=== PATIENT | male | born 1970 | race Caucasian/White ===

== ENCOUNTER 2017-01-26 15:09 | Inpatient (IN) | payer BC ==
--- NOTE | ~2017-01-26 | OR ---
Unit #: [id number] #: [id number] Patient: JUNIOR HERZOG [id number] [address] [place], [place] [address] [id number] MR#: [id number] NAME: JUNIOR HERZOG ROOM: 461 Date of Procedure: 01/27/2017 Admission Date: 01/26/2017 Surgeon: Alejandra Lujan M.D. : 1970 Attending Physician: Alejandra Lujan M.D. Primary Care Physician: Generic Doctor Not In System OPERATIVE REPORT PREOPERATIVE DIAGNOSIS Left lateral ankle wound infection. 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 PROCEDURE PERFORMED Left lateral ankle wound debridement, irrigation (16824) TECHNOLOGY SPECIALIST Prerna. ANESTHESIA General. INDICATIONS FOR SURGERY This 46-year-old male with almost one year status post left tibial talocalcaneal fusion. He had done relatively well and was fully ambulatory until a week ago when he fell injuring his left ankle. He developed a pointing abscess on the lateral wound, which abruptly drained 2 days ago, draining pus. The patient states that he had a fever and chills. He was admitted with a fever and an elevated white count. X-rays were fairly unremarkable. He has a 5 mm diameter wound, which extends down to the lateral talus. He is admitted for formal operative debridement. His radiographs show complete fusion of the subtalar joint, but no evidence of fusion of the ankle joint. DESCRIPTION OF PROCEDURE The patient was taken to the operating room and placed in supine position and general anesthetic was induced. The left leg was identified as the correct operative extremity during the time-out procedure. The IV antibiotic protocol was not followed because he was on preoperative vancomycin and Zosyn. The left leg was prepped and draped in usual sterile fashion. The leg was exsanguinated with gravity and the tourniquet inflated to 250 mmHg. The wound was then sharply debrided using a rongeur and scalpel. There was pus coming from the tibiotalar joint and there was clearly a nonunion of the tibiotalar fusion site. After removal of all appearing and infected appearing tissue, the wound was irrigated with 3 L of normal saline pulse irrigant. The hardware could not be removed because we did not have the appropriate hardware to remove the intramedullary nail. The wound was packed open with Betadine-soaked Kerlix and a combination of 4x4s, cast padding, and Unit #: [id number] #: [id number] Patient: JUNIOR HERZOG Jone wraps were applied. The patient was then awakened in the operating room and transported to the recovery room in stable condition. ESTIMATED BLOOD LOSS 100 mL. COMPLICATIONS None. SPECIMENS Cultures. TOURNIQUET TIME 15 minutes. PLAN The patient will return to the operating room in 4 days for complete removal of all hardware, formal debridement of the tibiotalar joint, and placement of antibiotic beads. He will continue IV antibiotics in the interim. Dictated by.Elan Bangura/michelle TD: 01/28/2017 02:10 JOB #: [id number] OPERATIVE REPORT Page 1 of 1 X Rabia Lujan MD X PROCEDURE OPERATIVE NOTE
--- NOTE | ~2017-01-26 | EKG ---
PATIENT: JUNIOR HERZOG UNIT #: [id number] Ventricular Rate: 93 BPM Atrial Rate: 93 BPM P-R Interval: 176 ms QRS Duration: 98 ms Q-T Interval: 358 ms QTC Calculation(Bezet): 445 ms P [place]: 34 degrees Calculated R [place]: 32 degrees Calculated T [place]: 19 degrees Diagnosis Line: Normal sinus rhythm Diagnosis Line: Normal ECG Diagnosis Line: When compared with ECG of 26-JAN-2017 19:41, Diagnosis Line: (unconfirmed) Diagnosis Line: Nonspecific T wave abnormality no longer evident Diagnosis Line: in Lateral leads Diagnosis Line: Confirmed by SHIRLENE FARFAN MD ([id number]) on 01/27/2017 Diagnosis Line: 6:47:59 PM INTERPRETING MD: NAHEED MORIN
--- NOTE | ~2017-01-26 | CT92 ---
[facility] A Service of [facility] & [facility] RADIOLOGY TEXT RESULTS PATIENT: JUNIOR HERZOG LOCATION: [facility] 461-01 : [birth year] UNIT #: [id number] AGE: [address]: Rabia Lujan MD SEX: M ORDER DR: [id number] [facility] [address] [facility] [place] [facility]. [place], [place] [address] [id number] MR#: [id number] Acc #: [id number] NAME: JUNIOR HERZOG : 1970 SEX: M STUDY DATE/TIME: 01/26/2017 17:52 UNIT: [facility] ROOM: [facility] STUDY DESCRIPTION: CT Lower Ext Lt Wo Cont Attending Physician: Alejandra Lujan M.D. Ordering Physician: Alejandra Lujan M.D. Primary Care Physician: Generic Doctor Not In System MEDICAL IMAGING REPORT This report is preliminary unless electronic signature is present EXAM CT left lower leg, ankle, and hindfoot without contrast - with coronal and sagittal reconstructions 01/26/2017 COMPARISON Left ankle radiographs 12/25/2015, 04/08/2016, 05/20/2016, 07/05/2016, 01/26/2017. HISTORY Order states left ankle infection. Plan for ankle wound debridement, wound vac placement. Progress note states 46-year-old white male recently diagnosed with MS reports falling about 1 week ago and then and a knot appeared approximately 3 days ago. Drainage started last night. History sheet states left lateral ankle infection. Patient states ankle opened with pus and blood drainage laterally 1 day ago. Open wound. Left ankle surgery 1996. Left ankle fusion 2015. FINDINGS Noncontrast axial images were performed with metal reduction technique and subsequent coronal and sagittal reconstructions. This CT examination was performed with one or more of the following radiation dose reduction techniques: automatic exposure control, adjustment of mA and/or kV according to patient size, and iterative reconstruction. There is a sizable lateral ankle hindfoot wound which appears filled with packing material. The wound measures 3.2 cm x 1.5 cm x 1.6 cm (craniocaudal x AP x transverse. Deep to the open wound is tracking gas contacting the lateral aspect of the deformed talus. There may be a tiny amount of intraarticular tibiotalar gas anteriorly. Findings are worrisome for septic arthritis. There is a long segment intramedullary tye in the distal tibia crossing [facility] A Service of [facility] RADIOLOGY TEXT RESULTS PATIENT: JUNIOR HERZOG LOCATION: [place] [address] : [birth year] UNIT #: [id number] AGE: [address]: Rabia Lujan MD SEX: M ORDER DR: the tibiotalar and posterior subtalar joints. The posterior subtalar joint is essentially fused. The tibiotalar joint is largely unfused with only a few small continuous bony bars. The talar dome is flattened and the talus is sclerotic concerning for avascular necrosis with collapse which predates the attempted fusion. There is generalized lateral soft tissue density in the ankle and hindfoot which could reflect inflammatory and/or granulation tissue. There is distension of the peroneal tendon sheath compatible with tenosynovitis which could be infectious in etiology. Peroneal tendons show no gross tear. Ankle tendons are otherwise unremarkable. Fusion is also noted of the middle subtalar joint. There is calcific debris dorsal to the talonavicular arthropathic articulation. No hardware failure or fracture is noted. IMPRESSION 1. Large lateral ankle hindfoot wound measures at least 3.2 x 1.6 x 1.5 cm. Tracking gas extends to contact the lateral aspect of the talus. A few tiny air bubbles are present in the anterior tibiotalar joint concerning for joint space contiguous infection. 2. Minimal bony bridging of the tibiotalar articulation status post attempted fusion. 3. Essentially complete fusion of the middle and posterior subtalar joints. 4. Extensive lateral soft tissue edema and/or granulation tissue. 5. Peroneal tenosynovitis could be infectious. 6. No hardware fracture. STAT * RESULT Dictated by... Jenny Hooks M.D. THIS IS AN ELECTRONICALLY VERIFIED REPORT Jenny Hooks M.D. at 01/27/2017 12:29 PM FESTUS/andrae TD: 01/27/2017 10:13 JOB #: [id number] MEDICAL IMAGING REPORT [facility] A Service of [facility] RADIOLOGY TEXT RESULTS PATIENT: JUNIOR HERZOG LOCATION: [place] [address] : [birth year] UNIT #: [id number] AGE: [address]: Rabia Lujan MD SEX: M ORDER DR: Page 1 of 1 COPY
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
--- NOTE | ~2017-01-26 | DS ---
Unit #: [id number] #: [id number] Patient: JUNIOR HERZOG [id number] [address] [place], [place] [address] [id number] I MR#: [id number] NAME: JUNIOR HERZOG ROOM: 46 Age: 46 Sex: M Admission Date: 01/26/2017 : 1970 Discharge Date: 02/03/2017 Attending Physician: Alejandra Lujan M.D. Primary Care Physician: Generic Doctor Not In System DISCHARGE SUMMARY CHIEF COMPLAINT Left ankle infection. HISTORY OF PRESENT ILLNESS The patient is a 46-year-old male who was recently diagnosed with multiple sclerosis who is one-year status post left tibial talocalcaneal fusion. The patient did relatively well until one week prior to admission when he fell and then developed a draining wound on the lateral aspect of his ankle. He has fevers and chills and was seen in the office with a 5 cm diameter lateral draining wound. The patient is, therefore, admitted for operative intervention. HOSPITAL COURSE The patient was taken to the operating room on 01/27/2017 for formal debridement and packing of the wound. He was then taken back to the operating room on 02/01/2017, where he underwent removal of all hardware with debridement of his tibiotalar joint nonunion and placement of tobramycin antibiotic beads. Cultures subsequently grew strep group B. A PICC line was placed and Infectious Disease is now in the process of determining his long-term IV antibiotic treatment. His wound was almost completely closed during the surgical procedure and, therefore, wet-to-dry dressings were no longer required. He was seen by infectious disease and they determined the appropriate IV antibiotic therapy, which will be instituted for the next six weeks. He was seen by physical therapy and instructed on how to remain nonweightbearing on his affected extremity. He was discharged in stable condition on 02/03/2017. FINAL DIAGNOSES 1. Left tibiotalar infected pseudarthrosis. 2. Retained left ankle hardware. DISPOSITION The patient is discharged home. DISCHARGE INSTRUCTIONS 1. He will keep the dressing clean, dry and intact. 2. He will remain nonweightbearing on the affected side. 3. He will continue ice and elevation. DISCHARGE MEDICATIONS 1. Same as home medications. 2. Percocet 5/325 mg 1-2 p.o. q.4-6 h. p.r.n. pain. 3. Xarelto 10 mg p.o. daily for a total of 2 weeks postoperatively. 4. IV antibiotics to be determined by the infectious disease service. Unit #: [id number] #: [id number] Patient: JUNIOR HERZOG FOLLOWUP 1. Follow up in my office in 10 days for dressing change, suture removal, application of a cast. 2. The plan will then an additional six weeks from the time of surgery to proceed with antibiotic bead removal And revision fusion of the ankle using an external fixator. FRANCA/mena TD: 02/02/2017 23:06 JOB #: [id number] Dictated by.Elan Bangura TD: 02/04/2017 09:52 JOB #: [id number] DISCHARGE SUMMARY Page 1 of 1 X Rabia Lujan MD X DISCHARGE SUMMARY
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
--- NOTE | ~2017-01-26 | OR ---
Unit #: [id number] #: [id number] Patient: JUNIOR HERZOG [id number] [address] [place], [place] [address] [id number] I MR#: [id number] NAME: JUNIOR HERZOG ROOM: 461 Date of Procedure: 02/01/2017 Admission Date: 01/26/2017 Surgeon: Alejandra Lujan M.D. : 1970 Attending Physician: Alejandra Lujan M.D. OPERATIVE REPORT PREOPERATIVE DIAGNOSES 1. Left lateral ankle infection. 2. Left ankle retained hardware. POSTOPERATIVE DIAGNOSES 1. Left lateral ankle infection. 2. Left ankle retained hardware. PROCEDURES PERFORMED 1. Left lateral ankle wound and incision and drainage (33260). 2. Left ankle hardware removal (55702). 3. Implantation of left tibiotalar joint antibiotic tobramycin beads (28062). ASSISTANTS Slime, Anupama, and Prerna. INDICATIONS FOR SURGERY The patient is a 46-year-old male, who is 11 months status post left tibiotalocalcaneal fusion. The patient is doing relatively well until a week ago when he developed a draining abscess over the lateral wound. The patient underwent formal operative debridement 4 days ago and this was found to extend into the tibiotalar joint, which showed an infected nonunion. The patient is therefore now to undergo formal debridement of the ankle joint with removal of all hardware and placement of antibiotic beads. DESCRIPTION OF PROCEDURE The patient was taken to the operating room and placed in supine position and general anesthetic was induced. A time-out was performed identifying the left ankle as the correct operative location. The IV antibiotic protocol was not followed as the patient was already on IV antibiotics. The left leg was then prepped and draped in the usual sterile fashion. The leg was exsanguinated with gravity and then the tourniquet was inflated to 300 mmHg. Under C-arm fluoroscopic control, the calcaneal locking screw placed from posterior to anterior was removed. The old incision in the plantar heel was opened in its anterior third. Dissection proceeded down to the plantar calcaneus. On osteotome was used to open the bone overlying the nail and a conical screw was then threaded into the nail itself. The lateral to medial calcaneal locking screw was removed through the wound. Unit #: [id number] #: [id number] Patient: JUNIOR HERZOG The two proximal locking screws locking the nail medially to laterally were also removed through two small stab incisions. The nail was then easily removed with a SLAP hammer. Finally, the screw fixating the subtalar joint, which was placed from posterior inferior calcaneus into the talar neck was removed through a small stab incision. After removal of all hardware, the ankle joint was able to be distracted with a laminar machine setter and repairer. The power osteotome, curved curettes, and rongeurs were utilized to remove all fibrinous material from the ankle joint. Aerobic and anaerobic cultures were taken. The curette was used to be vigorously curette the bony surfaces. No purulence was seen. The wound was then copiously irrigated. A single strand of 6 mm diameter tobramycin antibiotic beads were then placed into the wound. The wound was then closed with 2-0 nylon [id number] sutures and a near complete closure was achieved. Xeroform gauze, dressing, sponges, cast padding, and a posterior fiberglass splint were then applied. The patient was then transported to the recovery room in stable condition. ESTIMATED BLOOD LOSS Minimal. COMPLICATIONS None. SPECIMENS Aerobic and anaerobic cultures. TOURNIQUET TIME Approximately 70 minutes. Dictated byElan Medina/michelle TD: 02/02/2017 13:10 JOB #: [id number] OPERATIVE REPORT Page 1 of 1 X Rabia Lujan MD X PROCEDURE OPERATIVE NOTE
--- NOTE | ~2017-01-26 | EKG ---
PATIENT: JUNIOR HERZOG UNIT #: [id number] Ventricular Rate: 105 BPM Atrial Rate: 105 BPM P-R Interval: 174 ms QRS Duration: 90 ms Q-T Interval: 336 ms QTC Calculation(Bezet): 444 ms P [place]: 47 degrees Calculated R [place]: 32 degrees Calculated T [place]: 2 degrees Diagnosis Line: Sinus tachycardia Diagnosis Line: Nonspecific T wave abnormality Diagnosis Line: Abnormal ECG Diagnosis Line: No previous ECGs available Diagnosis Line: Confirmed by SHIRLENE FARFAN MD ([id number]) on 01/27/2017 Diagnosis Line: 6:42:40 PM INTERPRETING MD: NAHEED MORIN
--- NOTE | ~2017-01-26 | XA166 ---
[facility] A Service of [facility] & [facility] RADIOLOGY TEXT RESULTS PATIENT: JUNIOR HERZOG LOCATION: [facility] [id number] : [birth year] UNIT #: [id number] AGE: [address]: Rabia Lujan MD SEX: M ORDER DR: [id number] [place] [id number] [facility]. [place], [place] [address] [id number] MR#: [id number] Acc #: [id number] NAME: JUNIOR HERZOG : 1970 SEX: M STUDY DATE/TIME: 01/28/2017 12:58 UNIT: [facility] ROOM: [facility] STUDY DESCRIPTION: XA PICC Line Placement WO Port Attending Physician: Alejandra Lujan M.D. Ordering Physician: Akhil Pimentel M.D. Primary Care Physician: Generic Doctor Not In System MEDICAL IMAGING REPORT This report is preliminary unless electronic signature is present EXAM PICC line placement under ultrasound and fluoroscopy. HISTORY No venous access. Long-term antibiotics. PRE-PROCEDURE The procedure was explained to the patient and/or patient sales representative meats including risks, benefits, potential complications and potential for alternative forms of treatment. Informed consent was obtained, and prior to initiating the procedure a formal timeout procedure was performed. PROCEDURE Using full standard sterile barrier technique, including caps, gowns, gloves, masks, as well as sterile skin preparation and standard sterile draping, the right arm (brachial vein stick) was prepped and draped in the usual fashion, and real-time sterile ultrasound guidance was used to localize an arm vein and to confirm vessel patency. A hard copy ultrasound image was recorded. After local anesthesia with 1% Xylocaine, the vein was punctured using real-time sterile ultrasound guidance, and an 0.018 guidewire was advanced into the superior vena cava, using fluoroscopic guidance. A 5-Sami dual-lumen PICC (42 cm trim length) was then measured and deployed with the tip positioned in the superior vena cava. The position of the line was documented with a radiographic image. The line was secured in place with an adhesive dressing and an antibiotic patch was applied. Total fluoro time was 1 minute. Exposure 2 mGy air kerma. IMPRESSION Successful placement of a 5-Sami dual-lumen (42 cm trim length) PowerPICC via the right arm (brachial vein stick) under ultrasound and fluoroscopic guidance. The tip of the PICC is in good position in the [facility]. [facility] A Service of [facility] & [facility] RADIOLOGY TEXT RESULTS PATIENT: JUNIOR HERZOG LOCATION: [place] [address] : [birth year] UNIT #: [id number] AGE: [address]: Rabia Lujan MD SEX: M ORDER DR: superior vena cava. A single fluoroscopic spot image was obtained. Dictated by... Rey Quintana M.D. THIS IS AN ELECTRONICALLY VERIFIED REPORT Rey Quintana M.D. at 01/30/2017 9:17 AM JANET/mena TD: 01/29/2017 15:09 JOB #: [id number] MEDICAL IMAGING REPORT Page 1 of 1 COPY
[~2017-01-26 15:09] MED LIST: DOCUSATE SODIU100 MG PO; NORCO 10/3251 TAB PO; XANAX2 MG PO; XARELTO10 MG PO
[2017-01-26 17:07] LABS: BASOPHIL# 0.1 X10e3 (0-0.3); BASOPHIL% 0.7 % (0-2.5); EOSINOPHIL# 0.3 X10e3 (0-0.7); EOSINOPHIL% 1.8 % (0.0-7.0); HEMATOCRIT 46.7 % (38.0-50.0); HEMOGLOBIN 15.7 gm/dL (13.0-16.0); LYMPHOCYTE# 2.6 X10e3 (1.0-3.5); LYMPHOCYTE% 15.4 % (17.0-45.0); MEAN CELL VOLUME 88.9 FL (83-96); MEAN CORPUSCULAR HEMOGLOBIN 29.8 PG (28-34); MEAN CORPUSCULAR HGB CONC 33.5 g/dL (30-36); MEAN PLATELET VOLUME 7.5 FL (6.5-11.5); MONOCYTE# 1.1 X10e3 (0-1.0); MONOCYTE% 6.7 % (3.0-12.0); NEUTROPHIL# 12.7 X10e3 (1.5-7.1); NEUTROPHIL% 75.4 % (40-75); PLATELET COUNT 400 X10e3 (140-420); RED BLOOD COUNT 5.26 X10e (3.90-5.60); RED CELL DISTRIBUTION WIDTH 14.4 % (11.0-15.5); WHITE BLOOD COUNT 16.8 X10e3 (4.0-10.5)
[2017-01-26 17:08] LABS: DIFF IND YES
[2017-01-26 17:17] LABS: PROTHROMBIN TIME (PATIENT) 10.7 SECONDS (9.6-11.5)
[2017-01-26 17:31] LABS: BUN/CREATININE RATIO 13.84; CALCIUM SERUM 9.4 mg/dL (8.4-10.2); CREATININE SERUM 1.3 mg/dL (0.6-1.4); GLOM FILT RATE Estimated 65.9 mL/min (>60); POTASSIUM 3.8 mmol/L (3.5-5.1)
[2017-01-26 17:33] LABS: PLATELET ESTIMATE NORMAL (NORMAL)
[2017-01-26 22:55] LABS: URINE SOURCE CLEAN CATCH
[2017-01-26 22:59] LABS: URINE APPEARANCE CLEAR; URINE BILIRUBIN NEG (NEG); URINE BLOOD NEG (NEG); URINE COLOR YELLOW; URINE GLUCOSE NEG (NEG); URINE KETONE NEG (NEG); URINE LEUKOCYTE ESTERASE NEG (NEG); URINE NITRATE NEG (NEG); URINE PH 5.5 (5-8); URINE PROTEIN NEG (NEG); URINE SPECIFIC GRAVITY 1.016 (1.003-1.035)
[2017-01-27 04:18] LABS: CALCIUM SERUM 8.9 mg/dL (8.4-10.2); GLOM FILT RATE Estimated 90.5 mL/min (>60); POTASSIUM 4.5 mmol/L (3.5-5.1)
[2017-01-28 11:20] LABS: HEMATOCRIT 40.9 % (38.0-50.0); MEAN CELL VOLUME 89.7 FL (83-96); MEAN CORPUSCULAR HEMOGLOBIN 29.1 PG (28-34); MEAN CORPUSCULAR HGB CONC 32.5 g/dL (30-36); MEAN PLATELET VOLUME 7.2 FL (6.5-11.5); RED BLOOD COUNT 4.56 X10e (3.90-5.60); RED CELL DISTRIBUTION WIDTH 14.5 % (11.0-15.5); WHITE BLOOD COUNT 14.8 X10e3 (4.0-10.5)
[2017-01-28 11:26] LABS: HEMOGLOBIN 13.3 gm/dL (13.0-16.0)
[2017-01-28 12:17] LABS: BUN/CREATININE RATIO 11.81; CALCIUM SERUM 8.8 mg/dL (8.4-10.2); CREATININE SERUM 1.1 mg/dL (0.6-1.4); GLOM FILT RATE Estimated 80.7 mL/min (>60); POTASSIUM 4.4 mmol/L (3.5-5.1)
[2017-01-29 02:58] LABS: HEMATOCRIT 40.5 % (38.0-50.0); HEMOGLOBIN 13.2 gm/dL (13.0-16.0); MEAN CELL VOLUME 89.2 FL (83-96); MEAN CORPUSCULAR HEMOGLOBIN 29.1 PG (28-34); MEAN CORPUSCULAR HGB CONC 32.7 g/dL (30-36); MEAN PLATELET VOLUME 7.8 FL (6.5-11.5); RED BLOOD COUNT 4.54 X10e (3.90-5.60); RED CELL DISTRIBUTION WIDTH 13.9 % (11.0-15.5); WHITE BLOOD COUNT 14.5 X10e3 (4.0-10.5)
[2017-01-29 03:48] LABS: BUN/CREATININE RATIO 13.63; CALCIUM SERUM 9.1 mg/dL (8.4-10.2); CREATININE SERUM 1.1 mg/dL (0.6-1.4); GLOM FILT RATE Estimated 80.7 mL/min (>60); POTASSIUM 4.6 mmol/L (3.5-5.1)
[2017-01-29 10:44] LABS: HEMATOCRIT 40.2 % (38.0-50.0); HEMOGLOBIN 13.2 gm/dL (13.0-16.0); MEAN CELL VOLUME 89.1 FL (83-96); MEAN CORPUSCULAR HEMOGLOBIN 29.3 PG (28-34); MEAN CORPUSCULAR HGB CONC 32.9 g/dL (30-36); MEAN PLATELET VOLUME 7.5 FL (6.5-11.5); RED BLOOD COUNT 4.51 X10e (3.90-5.60); WHITE BLOOD COUNT 12.5 X10e3 (4.0-10.5)
[2017-01-29 11:11] LABS: BUN/CREATININE RATIO 13.63; CALCIUM SERUM 9.2 mg/dL (8.4-10.2); CREATININE SERUM 1.1 mg/dL (0.6-1.4); GLOM FILT RATE Estimated 80.7 mL/min (>60); MAGNESIUM 2.1 mg/dL (1.6-3.0); POTASSIUM 4.3 mmol/L (3.5-5.1)
[2017-01-30 03:25] LABS: BASOPHIL# 0.1 X10e3 (0-0.3); BASOPHIL% 0.6 % (0-2.5); EOSINOPHIL# 0.3 X10e3 (0-0.7); HEMATOCRIT 40.6 % (38.0-50.0); HEMOGLOBIN 13.7 gm/dL (13.0-16.0); LYMPHOCYTE# 2.8 X10e3 (1.0-3.5); LYMPHOCYTE% 20.3 % (17.0-45.0); MEAN CELL VOLUME 87.9 FL (83-96); MEAN CORPUSCULAR HEMOGLOBIN 29.7 PG (28-34); MEAN CORPUSCULAR HGB CONC 33.8 g/dL (30-36); MEAN PLATELET VOLUME 7.8 FL (6.5-11.5); MONOCYTE% 7.3 % (3.0-12.0); NEUTROPHIL# 9.8 X10e3 (1.5-7.1); NEUTROPHIL% 69.8 % (40-75); PLATELET COUNT 304 X10e3 (140-420); RED BLOOD COUNT 4.62 X10e (3.90-5.60)
[2017-01-30 03:28] LABS: DIFF IND NO
[2017-01-30 03:41] LABS: CALCIUM SERUM 9.3 mg/dL (8.4-10.2); GLOM FILT RATE Estimated 90.5 mL/min (>60); POTASSIUM 4.1 mmol/L (3.5-5.1)
[2017-01-31 04:38] LABS: CALCIUM SERUM 9.4 mg/dL (8.4-10.2); CREATININE SERUM 1.2 mg/dL (0.6-1.4); GLOM FILT RATE Estimated 72.6 mL/min (>60); POTASSIUM 4.3 mmol/L (3.5-5.1)
[2017-02-01 03:29] LABS: HEMATOCRIT 44.3 % (38.0-50.0); MEAN CELL VOLUME 88.1 FL (83-96); MEAN CORPUSCULAR HEMOGLOBIN 29.9 PG (28-34); MEAN CORPUSCULAR HGB CONC 33.9 g/dL (30-36); MEAN PLATELET VOLUME 7.8 FL (6.5-11.5); RED BLOOD COUNT 5.04 X10e (3.90-5.60); RED CELL DISTRIBUTION WIDTH 14.1 % (11.0-15.5); WHITE BLOOD COUNT 14.4 X10e3 (4.0-10.5)
[2017-02-01 04:37] LABS: BUN/CREATININE RATIO 15.83; CALCIUM SERUM 9.6 mg/dL (8.4-10.2); CREATININE SERUM 1.2 mg/dL (0.6-1.4); GLOM FILT RATE Estimated 72.6 mL/min (>60); MAGNESIUM 2.1 mg/dL (1.6-3.0); POTASSIUM 4.5 mmol/L (3.5-5.1)
[2017-02-02 03:12] LABS: HEMATOCRIT 40.5 % (38.0-50.0); HEMOGLOBIN 13.4 gm/dL (13.0-16.0); MEAN CORPUSCULAR HEMOGLOBIN 29.3 PG (28-34); RED BLOOD COUNT 4.55 X10e (3.90-5.60); RED CELL DISTRIBUTION WIDTH 14.1 % (11.0-15.5); WHITE BLOOD COUNT 14.5 X10e3 (4.0-10.5)
[2017-02-02 03:48] LABS: BUN/CREATININE RATIO 14.16; CALCIUM SERUM 8.9 mg/dL (8.4-10.2); CREATININE SERUM 1.2 mg/dL (0.6-1.4); GLOM FILT RATE Estimated 72.6 mL/min (>60); POTASSIUM 4.4 mmol/L (3.5-5.1)
[2017-02-03] MEDS ORDERED: XARELTO10 MG PO (11:19)
[2017-02-03] MEDS ORDERED: PERCOCET5/325 PO (11:21)
[2017-02-03] MEDS ORDERED: FLEXERIL10 MG PO (12:34)
[2017-02-03] MEDS ORDERED: CEFTRIAXONE2 GM IV (12:35)
[2017-03-03] MEDS ORDERED: XANAX2 MG PO (11:39)
[2017-03-09] MEDS ORDERED: [UNRECOGNIZED DRUG - OTHER] SUBQ (15:34)
== END 2017-02-03 13:04 | disposition home or self-care (01) | DRG 464 ==
LOC: C4C 15:09 → C2A 15:58 → C4C 15:58 → CSUR 01-27 12:30 → EDSTATUS 01-27 12:30 → C4C 02-03 13:04
PROVIDERS: Internal Medicine; Nurse Practitioner; Orthopaedic Surgery
PROC: 0JBR0ZZ Excision of Left Foot Subcutaneous Tissue and Fascia, Open Approach (ICD-10-PCS; 2017-01-27)
PROC: 3E0U029 Introduction of Other Anti-infective into Joints, Open Approach (ICD-10-PCS; 2017-02-01)
PROC: 0SPG04Z Removal of Internal Fixation Device from Left Ankle Joint, Open Approach (ICD-10-PCS; principal; 2017-02-01 13:30)
PROC: 0QBM0ZZ Excision of Left Tarsal, Open Approach (ICD-10-PCS; 2017-02-01 13:30)
DX: M96.0 Pseudarthrosis after fusion or arthrodesis (principal); T81.4XXA Infection following a procedure, initial encounter; M86.172 Other acute osteomyelitis, left ankle and foot; G35 Multiple sclerosis; L02.818 Cutaneous abscess of other sites; F41.9 Anxiety disorder, unspecified; Y83.8 Other surgical procedures as the cause of abnormal reaction of the patient, or of later complication, without mention of misadventure at the time of the procedure; Y79.8 Miscellaneous orthopedic devices associated with adverse incidents, not elsewhere classified; M65.9 Synovitis and tenosynovitis, unspecified
CPT/HCPCS: 73700; 76937; 77001; 80048; 81003; 83735; 85025; 85027; 85610; 85652; 86140; 87070; 87075; 87077; 87205; 88304; 88307; 88311; 93005; 94010; 94760; 97161; C1713; C1751; J0696; J1170; J2250; J2270; J2405; J2543; J3010; J3370

== ENCOUNTER 2017-03-15 11:15 | Inpatient (IN) | payer BC ==
[~2017-03-15] VITALS: Ht 175.3 cm; Wt 113.4 kg
--- NOTE | ~2017-03-15 | OR ---
Unit #: [id number] #: [id number] Patient: JUNIOR HERZOG [id number] [address] [place], [place] [address] [id number] MR#: [id number] NAME: JUNIOR HERZOG ROOM: 461 Date of Procedure: 03/15/2017 Admission Date: 03/15/2017 Surgeon: Alejandra Lujan M.D. : 1970 Attending Physician: Alejandra Lujan M.D. Primary Care Physician: Generic Doctor Not In System OPERATIVE REPORT PREOPERATIVE DIAGNOSES 1. Left ankle infected pseudarthrosis. 2. Retained left ankle antibiotic beads. POSTOPERATIVE DIAGNOSES 1. Left ankle infected pseudarthrosis. 2. Retained left ankle antibiotic beads. PROCEDURE PERFORMED 1. Left ankle fusion with hybrid external fixator (78905). 2. Left anterior iliac crest bone graft (). 3. Left ankle antibiotic bead removal (). ASSISTANTS [place] Vessell. ANESTHESIA Popliteal saphenous block and general. INDICATIONS FOR SURGERY The patient is a 46-year-old male with multiple sclerosis, who underwent left tibial talocalcaneal fusion with an intramedullary nail 1 year ago. Six weeks ago, he developed an infection of his ankle joint which was draining laterally, he underwent removal of all hardware with debridement of the ankle joint and placement of antibiotic beads. He then underwent treatment for a Streptococcus infection with 6 weeks of IV antibiotics. He is now to undergo removal of the antibiotic beads and fusion of the ankle joint using anterior iliac crest and infuse bone morphogenic protein. We will use an external fixator for definitive fusion. DESCRIPTION OF PROCEDURE The patient was taken to the operating room, following popliteal saphenous block. He was placed in a supine position. General anesthetic was induced. The left lower extremity and left anterior iliac crest were prepped and draped in usual sterile fashion. The leg was exsanguinated and the thigh tourniquet inflated to 300 mmHg. The antibiotic protocol was not followed because he was already on IV ceftriaxone preoperatively. The previous anterolateral longitudinal incision over the ankle was opened and dissection proceeded directly down to the ankle joint through dense scar. The joint was exposed subperiosteally. The joint was distracted with a laminar railroad operator and the antibiotic beads were removed. Aerobic and anaerobic cultures were taken. Curved curettes and a power osteotome Unit #: [id number] #: [id number] Patient: JUNIOR HERZOG were used to denude the joint of all fibrinous material. The bone was freshened with the power osteotome and the subchondral bone was feathered with the power osteotome. The wound was copiously irrigated. The bone was sent to Pathology for examination. There was no evidence of purulence. A 7-cm longitudinal incision was then made over the anterior iliac crest. The subcutaneous tissue was divided. The extensor oblique muscle was retracted off the anterior crest subperiosteally. A 3 x 1 cm cortical window was made in the superior aspect of the iliac crest. The window was removed and a large amount of cancellous graft was harvested from the iliac crest and packed into the ankle fusion site along with 2 collagen sponges soaked in Infuse bone morphogenetic protein. Because we had insufficient volume of autogenous graft to fill the void we added additional allograft cancellous bone chips. The joint was then positioned appropriately and pinned with 2 large smooth Steinmann pins, one pin was placed from proximal medial to distal lateral and second was placed from proximal lateral to distal medial. The Crossfader-BONESUPPORT hybrid frame was then applied. It was put together preoperatively and had been sterilized. The ring was positioned over the tibia and was fixated to the tibia with one straight half pin placed from anterior to posterior and a second oblique half pin placed from anteromedial to posterolateral. The foot was then fixated to the foot frame with all of wire placed from anterolateral to posteromedial in the calcaneus. This was tensioned up to 100 kg. A second wire was placed from posteromedial to posterolateral transversely across the calcaneus and again was tensioned to 100 kg. A smooth wire was then placed across all the metatarsal heads and tensioned to 100 kg and fixated to the foot frame. Finally, a wire was placed from the anteromedial mid foot through the mid foot to exit the posterolateral calcaneus and this smooth wire was again tensioned to 100 kg. All wires were then bent and a foot plate was applied. The two crossed Steinmann pins were removed and the frame was compressed and then the outrigger sections were tightened after full compression was achieved. Xeroform gauze, dressing, sponges, Webril, and Jone wraps were then applied. The patient was then transported to the recovery room in stable condition. ESTIMATED BLOOD LOSS Minimal. COMPLICATIONS None. SPECIMENS Aerobic and anaerobic cultures of left ankle, left distal tibia, proximal talar dome. TOURNIQUET TIME 104 minutes. Dictated byKristyn Lujan M.D. Unit #: [id number] #: [id number] Patient: JUNIOR HERZOG RT/modl TD: 03/16/2017 08:02 JOB #: [id number] OPERATIVE REPORT Page 1 of 1 X Rabia Lujan MD X PROCEDURE OPERATIVE NOTE
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
--- NOTE | ~2017-03-15 | DS ---
Unit #: [id number] #: [id number] Patient: JUNIOR HERZOG [id number] [address] [place], [place] [address] [id number] I MR#: [id number] NAME: JUNIOR HERZOG ROOM: 46 Age: 46 Sex: M Admission Date: 03/15/2017 : 1970 Discharge Date: 03/17/2017 Attending Physician: Alejandra Lujan M.D. Primary Care Physician: Generic Doctor Not In System DISCHARGE SUMMARY CHIEF COMPLAINT Left ankle infection. HISTORY OF PRESENT ILLNESS The patient is a 46-year-old male recently diagnosed with multiple sclerosis who underwent left tibiotalocalcaneal fusion with an intramedullary nail one year ago. He used his subtalar joint but went on to develop a pseudoarthrosis of the ankle joint. He then developed a lateral draining wound in early January and this required removal of all hardware with debridement of the wound and placement of antibiotic beads. He has been placed on a sick week course of IV Ceftriaxone. He is now admitted for removal of the antibiotic beads, joint debridement and joint fusion using anterior iliac crest bone graft and bone morphogenic protein. HOSPITAL COURSE The patient was taken to the operating room on the date of admission where he underwent left ankle joint debridement, removal of antibiotic beads, anterior iliac crest bone graft, placement of Infuse bone morphogenic protein and application of an external fixator. There were no operative complications. Intraoperative cultures are negative. Bone pathology is pending. The patient had a stable postoperative course, except he had an inability to void on the first postoperative night. Catheter was placed and 1200 mL of urine was obtained. The catheter was removed and we are now waiting for the patient to void. If he can void we will allow the patient to be discharged tomorrow. We can discontinue IV antibiotics. At this point he will be nonweightbearing for three months. FINAL DIAGNOSES Left ankle infected pseudoarthrosis with retained antibiotic beads. DISPOSITION AND RECOMMENDATIONS 1. The patient is discharged home. 2. He will keep the wounds clean and dry and continue elevation. He will continue nonweightbearing for three months. 3. Followup in my office in 10 to 14 days for dressing change due to removal. DISCHARGE MEDICATIONS 1. Xarelto 10 mg p.o. daily for 12 days. 2. Xanax 2 mg p.o. q.h.s. 3. Percocet 5/325 one or two p.o. q.4-6 hours p.r.n. pain. 4. Flexeril 10 mg p.o. q.8 hours p.r.n. Unit #: [id number] #: [id number] Patient: JUNIOR HERZOG Dictated by..Martin Lujan M.D. RTH/ts TD: 03/17/2017 10:01 JOB #: [id number] DISCHARGE SUMMARY Page 1 of 1 X Rabia Lujan MD X DISCHARGE SUMMARY
[~2017-03-15 11:15] MED LIST changes: +CEFTRIAXONE2 GM IV; +FLEXERIL10 MG PO; +PERCOCET5/325 PO; +[UNRECOGNIZED DRUG - OTHER] SUBQ
[2017-03-15 12:32] LABS: PARTIAL THROMBOPLASTIN TIME 26.4 SECONDS (23.5-31.3); PROTHROMBIN TIME (PATIENT) 10.5 SECONDS (10.0-11.7)
[2017-03-15 12:45] LABS: BASOPHIL# 0.1 X10e3 (0-0.3); BASOPHIL% 0.8 % (0-2.5); EOSINOPHIL# 0.2 X10e3 (0-0.7); EOSINOPHIL% 1.6 % (0.0-7.0); HEMATOCRIT 40.5 % (38.0-50.0); HEMOGLOBIN 13.8 gm/dL (13.0-16.0); LYMPHOCYTE# 2.7 X10e3 (1.0-3.5); LYMPHOCYTE% 22.2 % (17.0-45.0); MEAN CELL VOLUME 85.9 FL (83-96); MEAN CORPUSCULAR HEMOGLOBIN 29.2 PG (28-34); MEAN PLATELET VOLUME 7.5 FL (6.5-11.5); MONOCYTE# 0.9 X10e3 (0-1.0); MONOCYTE% 7.7 % (3.0-12.0); NEUTROPHIL# 8.1 X10e3 (1.5-7.1); NEUTROPHIL% 67.7 % (40-75); PLATELET COUNT 257 X10e3 (140-420); RED BLOOD COUNT 4.71 X10e (3.90-5.60)
[2017-03-15 12:47] LABS: DIFF IND NO
[2017-03-15 13:11] LABS: BUN/CREATININE RATIO 12.22; CALCIUM SERUM 8.7 mg/dL (8.4-10.2); CREATININE SERUM 0.9 mg/dL (0.6-1.4); GLOM FILT RATE Estimated 102.8 mL/min (>60); POTASSIUM 3.8 mmol/L (3.5-5.1)
[2017-03-16 03:29] LABS: HEMATOCRIT 37.3 % (38.0-50.0); HEMOGLOBIN 12.6 gm/dL (13.0-16.0)
[2017-03-17 02:52] LABS: HEMATOCRIT 33.7 % (38.0-50.0); HEMOGLOBIN 11.1 gm/dL (13.0-16.0)
[2017-03-18] MEDS ORDERED: PERCOCET5/325 PO (09:47)
== END 2017-03-18 15:10 | disposition home or self-care (01) | DRG 494 ==
LOC: CSUR 11:15 → C4C 15:53 → CSUR 16:30 → C4C 19:00
PROVIDERS: Orthopaedic Surgery
PROC: 0SGG07Z Fusion of Left Ankle Joint with Autologous Tissue Substitute, Open Approach (ICD-10-PCS; principal; 2017-03-15 15:30)
PROC: 0QB30ZZ Excision of Left Pelvic Bone, Open Approach (ICD-10-PCS; 2017-03-15 15:30)
PROC: 0SGG05Z Fusion of Left Ankle Joint with External Fixation Device, Open Approach (ICD-10-PCS; 2017-03-15 15:30)
DX: M96.0 Pseudarthrosis after fusion or arthrodesis (principal); G35 Multiple sclerosis
CPT/HCPCS: 80048; 85014; 85018; 85025; 85610; 85652; 85730; 87070; 87075; 87205; 88305; 88311; 94760; C1713; J0690; J1170; J2250; J2270; J2405; J2795; J3010; J3490